=== PATIENT | female | born 1985 | race Caucasian/White ===

== ENCOUNTER 2023-05-07 16:25 | Emergency (ER) | payer OTHER ==
[2023-05-07 16:59] VITALS: BP 128/81; PULSE 82; RESP 17; TEMP 98; BMI 25.0
[2023-05-07] MEDS ORDERED: LIDOCAINE 4% PATCH TP ONE ×2 (17:27→17:45)
[2023-05-07] MEDS ORDERED: KETOROLAC TROMETHAMINE 30 MG/1 ML VIAL IM ONE (17:27)
[2023-05-07] MEDS ORDERED: ACETAMINOPHEN 500 MG TABLET (FP) PO ONE (17:27)
[2023-05-07] MEDS ORDERED: KETOROLAC TROMETHAMINE 30 MG/1 ML VIAL ONE (17:45)
[2023-05-07] MEDS ORDERED: ACETAMINOPHEN 500 MG TABLET (FP) ONE (17:45)
[2023-05-07] MEDS ORDERED: LIDOCAINE PATCH REMOVAL MC SCH (22:00)
== END 2023-05-07 18:14 | disposition home or self-care (01) ==
LOC: JERFT 16:25
PROC: 3E0233Z Introduction of Anti-inflammatory into Muscle, Percutaneous Approach (ICD-10-PCS; principal; 2023-05-07)
DX: M54.50 Low back pain, unspecified (principal)
CPT/HCPCS: 99284-25